=== PATIENT | female | born 1990 ===

== ENCOUNTER 2016-09-17 22:03 | Emergency (ER) | payer MEDICARE, OTHER ==
[2016-09-17 22:04] VITALS: O2SAT 100
[2016-09-17 22:19] VITALS: BP 118/48; PULSE 91; RESP 18; TEMP 98.8
== END 2016-09-17 22:38 | disposition home or self-care (01) | DRG 204 ==
LOC: ED 22:03
DX: R05 Cough (principal); R50.9 Fever, unspecified
CPT/HCPCS: 99282